=== PATIENT | male | born 1965 | race Caucasian/White ===

== ENCOUNTER 2016-10-12 18:41 | Emergency (ER) | payer BC, MEDICAID ==
[2016-10-12 20:52] VITALS: BP 158/115
--- NOTE | 2016-10-12 20:53 | UC ---
Hand/Wrist HPI - HPI Summary HPI Summary: The patient comes in today for: 1. Left hand injury: Onset: 9 hours ago. Palliative/provocative: Movement makes the pain worse. Quality: "Inconvenience, constant ache." Region: Left thumb. Severity: 210 Time: Constant. Associated symptoms: Event: He was moving furniture at work. While moving the furniture, he suffered punctures of the palmar base of the left thumb. He did not have any problems with movement initially, but this has changed over time along with swelling. Tetanus: He states that he know for sure that he had a tetanus in 2007 Discharge: None. Very little bleeding initially. 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 - Allergies/Home Medications Allergies/Adverse Reactions: Allergies Allergy/AdvReac Type Severity Reaction Status Date / Time Amiodarone Allergy Severe TSH Verified 10/12/16 19:19 ELEVATION, ADVERSE THYROID REACTION Propafenone [From Rythmol] Allergy Severe TSH Verified 10/12/16 19:19 ELEVATION, ADVERSE THYROID REACTION Home Medications: Home Medications Aspirin TAB* [Aspirin 325 MG TAB*] 325 mg PO DAILY 10/12/16 [History Confirmed 10/12/16] Buprenorphine/Naloxone SL TAB* [Suboxone 8-2 mg SL TAB*] 8 mg SL DAILY 10/12/16 [History Confirmed 10/12/16] Bupropion XL* [Wellbutrin XL *] 300 mg PO DAILY 10/12/16 [History Confirmed 05/19] Diltiazem HCl Coated Beads [Cardizem 240 MG LA] 240 mg PO DAILY 10/12/16 [ History Confirmed 10/12/16] Melatonin 10/12/16 [History Confirmed 10/12/16] PMH/Surg Hx/FS Hx/Imm Hx Previously Healthy: No - Suboxone (opioid use in past), hypogonadism. Endocrine History Of: Denies: Diabetes, Thyroid Disease, Hyperthyroidism, Hypothyroidism, Dyslipidemia Cardiovascular History Of: Reports: Cardiac Disorders - A FIB, Atrial Fibrillation Denies: Hypertension, Pacemaker/ICD, Myocardial Infarction, Congestive Heart Failure, Deep Vein Thrombosis, Bleeding Disorders Respiratory History Of: Denies: COPD, Asthma, Bronchitis, Pneumonia, Pulmonary Embolism GI/ History Of: Denies: Gastroesophageal Reflux, Ulcer, Gastrointestinal Bleed, Gall Bladder Disease, Kidney Stones, Diverticulitis, Renal Disease, Urosepsis Neurological History Of: Denies: TIA, CVA, Dementia, Seizures, Migraine Psychological History Of: Reports: Anxiety, Depression Denies: Bipolar Disorder, Schizophrenia, Post Traumatic Stress Disorder Cancer History Of: Denies: Lung Cancer, Colorectal Cancer, Breast Cancer, Prostate Cancer, Cervical Cancer Other History Of: Anticoagulant Therapy - Aspirin. Negative For: HIV, Hepatitis B, Hepatitis C - Surgical History Surgical History: Yes Surgery Procedure, Year, and Place: liposuction 2002 - Family History Known Family History: Positive: Hypertension Negative: Cardiac Disease - Social History Occupation: Employed Full-time Alcohol Use: Occasionally Substance Use Type: None Substance Use Comment - Amount & Last Used: PAST HX HEROIN USE Smoking Status (MU): Never Smoked Tobacco Household Exposure Type: Cigarettes, Cigars - Immunization History Most Recent Influenza Vaccination: jul 2012 Most Recent Tetanus Shot: November Most Recent Pneumonia Vaccination: NEVER Review of Systems Constitutional: Negative Skin: Negative Eyes: Negative ENT: Negative Respiratory: Negative Cardiovascular: Negative Gastrointestinal: Negative Genitourinary: Negative Motor: Negative All Other Systems Reviewed And Are Negative: Yes Physical Exam Triage Information Reviewed: Yes Appearance: Well-Appearing, No Pain Distress, Well-Nourished Vital Signs: Initial Vital Signs Temp 95.9 F 10/12/16 19:13 Pulse 90 10/12/16 19:13 Resp 20 10/12/16 19:13 BP 145/85 10/12/16 19:13 Vital Signs Reviewed: Yes Eyes: Positive: Conjunctiva Clear. Negative: Discharge ENT: Positive: Hearing grossly normal. Negative: Pharyngeal erythema, Nasal congestion, Nasal drainage, TM bulging, TM dull, TM red, Tonsillar swelling, Tonsillar exudate Dental: Negative: Gross Decay/Caries @, Dental Fracture @ Neck: Positive: Supple, Nontender, No Lymphadenopathy. Negative: Nuchal Rigidity Respiratory: Positive: Lungs clear, No respiratory distress, No accessory muscle use. Negative: Crackles, Wheezing Cardiovascular: Positive: RRR, No Murmur Abdomen Description: Positive: Nontender, No Organomegaly, Soft. Negative: Distended, Guarding Musculoskeletal: Positive: Strength Intact, ROM Intact, No Edema, Other: - Left palmar base of thumb. There are two 2-3 mm puncture wounds at the base of the thumb. No ecchymosis. No erythema. Minimal edema. He has full extension and flexion of the thumb. Neurological: Positive: Alert, Muscle Tone Normal Psychological: Positive: Age Appropriate Behavior, Consolable Skin: Negative: rashes, breakdown Hand/Wrist Course/Dx - Differential Dx/Diagnosis Provider Diagnoses: puncture wound, palmar base of left thumb. Discharge - Discharge Plan Condition: Stable Disposition: HOME Patient Education Materials: Puncture Wound (ED) Referrals: Wil Byrd NP [Primary Care Provider] - 1 Week (Please see your primary care provider early next week to see how well you are doing. If you get worse, please be seen sooner. If you are not able to get in timely, you can come to see us.)
[2016-10-12] MEDS ORDERED: Tetan/Diph/Pertus SYR(Tdap)* 0.5 ML SYR(BOOSTRIX) use SYR IM ONE (21:10)
[2016-10-12] MEDS ORDERED: Cephalexin CAP* 500 MG PO ONE (21:10)
== END 2016-10-12 21:50 | disposition home or self-care (01) ==
LOC: UCEAST 18:41
DX: S61.432A Puncture wound without foreign body of left hand, initial encounter (principal); X58.XXXA Exposure to other specified factors, initial encounter; Y93.89 Activity, other specified; Y92.89 Other specified places as the place of occurrence of the external cause; Y99.0 Civilian activity done for income or pay; Z23 Encounter for immunization; I48.91 Unspecified atrial fibrillation; Z79.82 Long term (current) use of aspirin; F41.8 Other specified anxiety disorders; Z88.8 Allergy status to other drugs, medicaments and biological substances; Z77.22 Contact with and (suspected) exposure to environmental tobacco smoke (acute) (chronic)
CPT/HCPCS: 90471; 90715; 99212; A9270-GY; G0463

== ENCOUNTER 2018-03-29 12:39 | Emergency (ER) | payer BC ==
[2018-03-29 13:30] VITALS: BP 147/88
--- NOTE | 2018-03-29 13:42 | UC ---
Complaint Female HPI - HPI Summary HPI Summary: Patient Chief Complaint: 52-year-old complains of dysuria. MD note: VSS:147/88; on anti hypertensive meds. Nurses Note: Pain with and after urination since last Saturday, mild fevers.Tried augmentin from home, had azo today. - History Of Current Complaint Chief Complaint: UCGU Stated Complaint: FREQUENT URINATION Time Seen by Provider: 03/29/18 13:35 Pain Intensity: 0 - Allergies/Home Medications Allergies/Adverse Reactions: Allergies Allergy/AdvReac Type Severity Reaction Status Date / Time amiodarone Allergy See Comment Verified 03/29/18 13:31 propafenone Allergy See Comment Verified 03/29/18 13:31 Home Medications: Home Medications Cranberry Fruit Extract/Vit C [Azo Cranbery Urinary Trac 250-60 mg] 1 cap PO DAILY 03/29/18 [History Confirmed 03/29/18] Diltiazem XR EXTEND Releas(NF) [Cartia XR (NF)] 240 mg PO DAILY 03/29/18 [ History Confirmed 03/29/18] Metoprolol Succinate XL TAB* [Toprol XL TAB*] 100 mg PO DAILY 03/29/18 [History Confirmed 03/29/18] Ramipril CAP* [Altace CAP*] 5 mg PO DAILY 03/29/18 [History Confirmed 03/29/18] PMH/Surg Hx/FS Hx/Imm Hx - Additional Past Medical History Additional PMH: Review of visit history: complicated hx of opiod abuse Review of chronic conditions: Medications and Allergies: Family History: -HYPTERTENSION -CARDIOVASCULAR DISEASE -STROKE -DIABETES -CANCER -Denies hypertension, heart disease, stroke, diabetes, cancer. SOCIAL HISTORY: Employment: Family: Habits: Other History Of: Anticoagulant Therapy - Aspirin. Negative For: HIV, Hepatitis B, Hepatitis C - Surgical History Surgical History: Yes Surgery Procedure, Year, and Place: liposuction 2002 - Family History Known Family History: Positive: Hypertension Negative: Cardiac Disease - Social History Alcohol Use: Occasionally Substance Use Type: None Substance Use Comment - Amount & Last Used: PAST HX HEROIN USE Smoking Status (MU): Never Smoked Tobacco Household Exposure Type: Cigarettes, Cigars - Immunization History Most Recent Influenza Vaccination: jul 2012 Most Recent Tetanus Shot: November Most Recent Pneumonia Vaccination: NEVER Physical Exam Vital Signs: Initial Vital Signs Temp 97.1 F 03/29/18 13:23 Pulse 96 03/29/18 13:23 Resp 16 03/29/18 13:23 BP 147/88 03/29/18 13:23 Pulse Ox 97 03/29/18 13:23 Discharge - Discharge Plan Referrals: Wil Byrd, PHILOSOPHY SPECIALIST [Primary Care Provider] -
--- NOTE | 2018-03-29 13:56 | UC ---
Complaint Male HPI - HPI Summary HPI Summary: 52 year old with complaint of dysuria for one week. Mostly at the end of urination. Has taken some augmentin and pyridium. Continued but decreased symptoms of discomfort over the bladder. Denies perineal pain or CVA pain. - History of Current Complaint Chief Complaint: UCGU Stated Complaint: FREQUENT URINATION Time Seen by Provider: 03/29/18 13:35 Pain Intensity: 0 - Allergies/Home Medications Allergies/Adverse Reactions: Allergies Allergy/AdvReac Type Severity Reaction Status Date / Time amiodarone Allergy See Comment Verified 03/29/18 13:31 propafenone Allergy See Comment Verified 03/29/18 13:31 Home Medications: Home Medications Cranberry Fruit Extract/Vit C [Azo Cranberry Softgel] 1 cap PO DAILY 03/29/18 [ History Confirmed 03/29/18] Diltiazem XR EXTEND Releas(NF) [Cartia XR (NF)] 240 mg PO DAILY 03/29/18 [ History Confirmed 03/29/18] Metoprolol Succinate XL TAB* [Toprol XL TAB*] 100 mg PO DAILY 03/29/18 [History Confirmed 03/29/18] Ramipril CAP* [Altace CAP*] 5 mg PO DAILY 03/29/18 [History Confirmed 03/29/18] PMH/Surg Hx/FS Hx/Imm Hx - Additional Past Medical History Additional PMH: Straight Review of visit history: Opioid dependence; reviews UTI or prostatism noted. Review of chronic conditions: Hepatitis C Medications and Allergies: No medication allergies. No blood pressure medications. BP 147/88. Family History: -CANCER -Denies hypertension, heart disease, stroke, diabetes. SOCIAL HISTORY: Employment: [employer] Family: lives with family Habits: non smoker Previously Healthy: No - opiod treatment; Hep C Other History Of: Anticoagulant Therapy - Aspirin. Negative For: HIV, Hepatitis B, Hepatitis C - Surgical History Surgical History: Yes Surgery Procedure, Year, and Place: liposuction 2002 - Family History Known Family History: Positive: Hypertension Negative: Cardiac Disease - Social History Alcohol Use: Occasionally Substance Use Type: None Substance Use Comment - Amount & Last Used: PAST HX HEROIN USE Smoking Status (MU): Never Smoked Tobacco Household Exposure Type: Cigarettes, Cigars - Immunization History Most Recent Influenza Vaccination: jul 2012 Most Recent Tetanus Shot: November Most Recent Pneumonia Vaccination: NEVER Review of Systems Constitutional: Negative Skin: Negative Eyes: Negative ENT: Negative Respiratory: Negative Cardiovascular: Negative Gastrointestinal: Negative Genitourinary: Dysuria - at end of voicing; no back pain; mild suprapubic discomfort. Motor: Negative Neurovascular: Negative Musculoskeletal: Negative Neurological: Negative Psychological: Negative Is Patient Immunocompromised?: No All Other Systems Reviewed And Are Negative: Yes - Comments Additional Review of Systems Comments: A 12 point review of systems was completed and was significantly positive for dysuria . The remainder of the review was negative except as stated above in the ROS or HPI. Physical Exam - Summary Physical Exam Summary: Appearance: The patient is well-appearing, is in no pain or distress, and is well-nourished. Eyes: Conjunctiva are clear. Pupils are equal and reactive to light and accommodation. Extra ocular muscle movement is intact. ENT: The hearing is grossly normal, the pharynx is normal, and the TMs are normal. There is no muffled or hoarse voice. No stridor. Neck: The neck is supple and there is no lymphadenopathy. Respiratory: The chest is nontender to palpation and without crepitus. The lungs are clear, there are normal breath sounds, and there is no respiratory distress. No wheezes, rales or rhonchi. Cardiovascular: Heart sounds reveal a regular rate and rhythm. There are no clicks, rubs or murmurs. There are no carotid bruits or thrills. Circulation is grossly intact. Abdomen: The abdomen is soft and nontender. There is no organomegaly. Bowel sounds are present and within normal limits. No point tenderness at McBurneys point. No CVA tenderness; mild suprpubic discomfort with palpation. Musculoskeletal: Strength is intact. The patient moves all extremities. x. Neurological: The patient is alert. Motor and sensory are examination grossly intact. Speech is normal. Psychological: The patient displays age appropriate behavior Skin: Negative for rashes. Triage Information Reviewed: Yes Vital Signs: Initial Vital Signs Temp 97.1 F 03/29/18 13:23 Pulse 96 03/29/18 13:23 Resp 16 03/29/18 13:23 BP 147/88 03/29/18 13:23 Pulse Ox 97 03/29/18 13:23 Vital Signs Reviewed: Yes Complaint Male Course/Dx - Course Course Of Treatment: MEDICATIONS REVIEWED: Medications have been included in the original chart and reviewed. HYPERTENSION REVIEWED: HTN NOTED: Hypertensive BP reading; follow up with PCP within 4 weeks to recheck blood pressure has been recommended to patient. Patient voices understanding. 52- year-old white male comes in complaining of dysuria at the termination of voiding he has been treating this at home with his own Pyridium and some leftover Augmentin. It's unclear if the condition has become less intense. The urgent care center he is comfortable, afebrile and shows no sign of CVA tenderness. We could not obtain a UA because of his use of Pyridium. We did send a urine culture. I stopped the Augmentin and started him on Cipro for 7 days. He does have a somewhat complex past medical history including otitis C and opioid abuse. Further, he seems to be dealing with these problems effectively at this time. Will follow-up with his own physician if his condition does not improve in 3 days. - Differential Dx/Diagnosis Provider Diagnoses: cystitis Discharge - Sign-Out/Discharge Documenting (check all that apply): Patient Departure All imaging exams completed and their final reports reviewed: No Studies - Discharge Plan Condition: Stable Disposition: HOME Prescriptions: Ciprofloxacin TAB* [Cipro Tab*] 500 mg PO BID #14 tab MDD 2 Patient Education Materials: Urinary Tract Infection in Men (DC) Referrals: Wil Byrd NP [Primary Care Provider] - Additional Instructions: WE DISCUSSED: PLEASE SEEK CARE AT THE EMERGENCY DEPARTMENT IF SYMPTOMS WORSEN OR IF NEW SYMPTOMS DEVELOP. FOLLOW UP WITH YOUR PRIMARY CARE PHYSICIAN IF CONDITION CONTINUES BEYOND 3 DAYS WITHOUT IMPROVEMENT. Begin Cipro 500mg, twice a day for 7 days. Recheck at any time for increased pain, temperature, inability to urinate. - Billing Disposition and Condition Condition: STABLE Disposition: Home
--- NOTE | 2018-04-01 16:55 | UC ---
- Progress Note Progress Note: + E. coli On Cipr + sensitive no change moisesj 04/01/2018 Discharge - Sign-Out/Discharge Documenting (check all that apply): Post-Discharge Follow Up All imaging exams completed and their final reports reviewed: No Studies - Discharge Plan Condition: Stable Disposition: HOME Prescriptions: Ciprofloxacin TAB* [Cipro Tab*] 500 mg PO BID #14 tab MDD 2 Patient Education Materials: Urinary Tract Infection in Men (DC) Referrals: Wil Byrd SOCK IRONER [Primary Care Provider] - Additional Instructions: WE DISCUSSED: PLEASE SEEK CARE AT THE EMERGENCY DEPARTMENT IF SYMPTOMS WORSEN OR IF NEW SYMPTOMS DEVELOP. FOLLOW UP WITH YOUR PRIMARY CARE PHYSICIAN IF CONDITION CONTINUES BEYOND 3 DAYS WITHOUT IMPROVEMENT. Begin Cipro 500mg, twice a day for 7 days. Recheck at any time for increased pain, temperature, inability to urinate. - Billing Disposition and Condition Condition: STABLE Disposition: Home
== END 2018-03-29 14:15 | disposition home or self-care (01) ==
LOC: UCEAST 12:39
DX: N30.90 Cystitis, unspecified without hematuria (principal); Z88.8 Allergy status to other drugs, medicaments and biological substances
CPT/HCPCS: 87077; 87086; 87186; 99212; G0463